=== PATIENT | female | born 1970 | race Caucasian/White ===

== ENCOUNTER → 2022-05-21 | Outpatient (CLI) | payer OTHER, BC ==
[2022-05-21 13:15] LABS: PLATELET COUNT, AUTOMATED 256 10^3/uL (150-450)
[2022-05-21 13:34] LABS: INR 0.98; PROTHROMBIN TIME 13.4 SECONDS (12.7-14.5)
[2022-05-21 13:35] LABS: PARTIAL THROMBOPLASTIN TIME 28.8 SECONDS (25.9-37.0)
[2022-05-21 14:25] LABS: COLLAGEN EPINEPHRINE 150 SECONDS (74-162)
== END ==
LOC: M LAB 12:41
PROVIDERS: ATTEND Physician Assistant Surgical
DX: M51.16 Intervertebral disc disorders with radiculopathy, lumbar region (principal)

== ENCOUNTER → 2022-07-12 | Outpatient (CLI) | payer OTHER, BC | LOC: M EKG 13:32 | PROVIDERS: ATTEND Orthopaedic Surgery | DX: S83.281D Other tear of lateral meniscus, current injury, right knee, subsequent encounter (principal) ==